=== PATIENT | male | born 1955 | race African-American/Black ===

== ENCOUNTER → 2017-05-05 | Day surgery (SDC) | payer BC ==
[~2017-05-05] MED LIST: ALDA50TA2 PO; AMLO2.5T PO; BUPIVACAINE HCL PF 0.75% 30 ML VIAL ONE; ENAL20TA81 PO; LOVA40TA PO; PROPOFOL 200 MG/20 ML AMP IV ONE; TRIAMCINOLONE ACETONIDE 40 MG/ML VIAL I-ARTICULR ONE
--- NOTE | 2017-05-09 10:23 | M6 ---
cc: MADDIE MADERA M.D. DATE: ] 05/05/2017. DATE OF : 1955 PROCEDURE His fluoroscopically guided injection bilateral lumbar facet joints (bilateral, L3-4, L4-5 and L5-S1 facet joints. History and physical was completed and signed. Consent was signed. Procedure site was marked. Medications were listed and reconciled. Pain score was recorded. Allergies were noted. Time out was taken. Fluoroscopy time was recorded where applicable. Sedation was administered or directed by Dr. Madera. The patient was given oxygen. The patient was monitored by a registered nurse. Total procedure time was greater than 15 minutes. IV was started, blood pressure cuff, pulse oximeter and EKG were applied. The patient was placed in the prone position on a Noé table sedated with small amounts of propofol titrated to effect. Vital signs were monitored and remained stable throughout the procedure lumbar area was prepped with alcohol and 10% Betadine solution and draped with sterile drapes. Fluoroscopy was used in a [place] dog view to clearly visualize the bilateral lumbar facet joints at L3-4, L4-5 and L5-S1. Separate sterile 3-1/2-inch 25-gauge spinal needles were advanced into these joints under fluoroscopic guidance. There was negative aspiration for blood or any other type of fluid at each location the patient was given 1 mL Marcaine 0.75% which contained 10 mg of Kenalog. Following the procedure the patient was taken to the recovery room with stable vital signs neurologically intact he will be evaluated immediately and with followup to determine if he has a subjective decrease in his usual pain and corresponding objective increase his functional capabilities. W. MD HU Asencio/arcadio /9:27 AM /10:17 AM
== END | disposition home or self-care (01) ==
LOC: PHSDC 08:06
PROVIDERS: ATTEND Pain Medicine Interventional Pain Medicine
DX: M54.5 Low back pain (principal)
CPT/HCPCS: 64493; 64494; 64495; 99152; J3301